=== PATIENT | female | born 1965 | race Caucasian/White ===

== ENCOUNTER 2022-04-04 17:32 | Emergency (ER) | payer SELFPAY ==
[2022-04-04] MEDS ORDERED: ETOMIDATE 20 MG/10 ML VIAL IV ONE (17:33)
[2022-04-04] MEDS ORDERED: SUCCINYLCHOLINE 20 MG/ML (10 ML) IV ONE (17:33)
[2022-04-04] MEDS ORDERED: RSI MEDICATION KIT IV ONE ×2 (17:43→17:58)
[2022-04-04] MEDS ORDERED: Nicardipine/NS 25 MG/250 ML KIT IV ONE (17:43)
--- NOTE | 2022-04-04 17:48 | RAD REPORT ---
EXAM DESCRIPTION: CT - Ct Stroke Brain Wo Cont - 04/04/2022 5:41 pm CLINICAL HISTORY: ams, weakness COMPARISON: No comparisons TECHNIQUE: All CT scans are performed using dose optimization technique as appropriate and may inclu de automated exposure control or mA/KV adjustment according to patient size. FINDINGS: Right basal ganglia intraparenchymal hemorrhage measuring 4.5 cm by 2.6 cm with intraventr icular spread. The temporal horns are mildly dilated suggesting early hydrocephalus. Blood is also se en within the third and fourth ventricles. No acute large vascular territory infarcts. No midline cori ft. The paranasal sinuses and mastoids are clear. The calvarium is intact. IMPRESSION: Right basal ganglia intraparenchymal hemorrhage with intraventricular spread. Findings c oncerning for early hydrocephalus. No midline shift. Discussed with Titi by Dr. Casillas at 1740 on 04/04/22
[2022-04-04 17:58] LABS: Hematocrit 50.1 % (36.0-45.0); Lymphocytes % 27.2 % (15.3-44.8); RBC Red Blood Cell Count 5.19 M/uL (3.86-4.86)
--- NOTE | 2022-04-04 18:01 | EDPHYS ---
Physician Documentation [facility] Name: Goldie Macedo Age: 57 yrs Sex: Female : 1965 Arrival Date: 04/04/2022 Time: 17:33 Bed DIS4 Private MD: ED Physician HPI: 04/04 18:01 This 57 yrs old Female presents to ER via EMS with unknown complaint. pm1 18:01 The patient presents with decreased mental status, decreased responsiveness. Onset: The pm1 symptoms/episode began/occurred just prior to arrival. Possible causes: unknown. Associated signs and symptoms: Pertinent positives: Slurred speech, generalized weakness, gaze to right side. Current symptoms: In the emergency department the patient's symptoms have worsened, Per EMS. Patient was talking on arrival by EMS is no longer talking now. Patient's baseline: Neuro: alert and fully oriented, Motor: no deficits, Ambulation: walks without assistance, Speech: normal, The patient has a previous history of Hypertension, diabetes, patient does not take any medications except for aspirin. The patient has not experienced similar symptoms in the past. The patient has not recently seen a physician, and does not have an established primary care provider. Historical: - Allergies: 18:10 No Known Allergies; jl7 - Home Meds: 18:10 Aspirin Oral [Active]; jl7 - PMHx: 18:10 Diabetes mellitus; Hypertensive disorder; jl7 - Immunization history:: Adult Immunizations unknown. - Social history:: Smoking status: unknown. ROS: 18:01 Constitutional: Negative for fever, chills, and weight loss, Cardiovascular: Negative pm1 for chest pain, palpitations, and edema, Respiratory: Negative for shortness of breath, cough, wheezing, and pleuritic chest pain, MS/Extremity: Negative for injury and deformity, Skin: Negative for injury, rash, and discoloration. 18:01 Neuro: Positive for altered mental status, weakness. 18:01 All other systems are negative. Exam: 18:01 Skin: Warm, dry with normal turgor. Normal color with no rashes, no lesions, and no pm1 evidence of cellulitis. MS/ Extremity: Pulses equal, no cyanosis 18:01 Constitutional: The patient appears non-toxic, well developed, well hydrated, well groomed, well nourished, Responsive only to pain 18:01 Head/face: Exam is negative for acute changes. 18:01 Eyes: Periorbital structures: appear normal, Pupils: no acute changes. 18:01 ENT: Mouth: no acute changes, Lips: normal, moist, Oral mucosa: normal, pink and intact, moist, Gums: normal with healthy appearance. 18:01 Neck: Exam negative for acute changes. 18:01 Cardiovascular: Exam negative for acute changes, Rate: normal, Rhythm: regular, Pulses: no pulse deficits are appreciated. 18:01 Respiratory: Exam negative for acute changes, respiratory distress, shortness of breath. 18:01 Neuro: Mentation: unable to follow commands, responsive to pain. Vital Signs: 17:36 Temp 98.1(TE); jl7 17:37 BP 204 / 87; Pulse 99; Resp 36; Pulse Ox 92% 4 lpm ; Weight 83.91 kg; Height 5 ft. 3 jl7 in. (160.02 cm); 17:46 BP 225 / 96; Pulse 95; Resp 19; Pulse Ox 100% on BVM; jl7 17:50 BP 221 / 108; jl7 17:50 BP 221 / 108; Pulse 110; jl7 18:02 BP 218 / 110; jl7 18:02 BP 218 / 110; Pulse 119; jl7 18:08 BP 170 / 76; Pulse 108; Resp 20; Pulse Ox 100% on ETT vent; jl7 18:12 BP 138 / 72; Pulse 100; vg1 18:15 BP 135 / 74; Pulse 96; vg1 18:18 BP 155 / 78; Pulse 98; vg1 18:21 BP 149 / 68; Pulse 96; vg1 18:24 BP 146 / 73; Pulse 94; vg1 18:27 BP 155 / 69; Pulse 94; vg1 18:30 BP 165 / 70; Pulse 95; vg1 18:33 BP 155 / 68; Pulse 96; vg1 17:37 Body Mass Index 32.77 (83.91 kg, 160.02 cm) jl7 NIH Stroke Scale Scores: 17:26 NIHSS Score: 29 vg1 Procedures: 18:11 Intubation: Ventilated with 100% NRB prior to procedure. Intubated orally using # 4 pm1 Hilda blade with 7.5 mm ETT. Successful on second attempt. Ventilated with Ambu bag. Tube secured at right side of mouth measured 24 cm at teeth. Placement verified by CO2 detector with (+) color change, Patient tolerated well. MDM: 17:35 Patient medically screened. pm1 17:59 Data reviewed: vital signs. pm1 18:10 Counseling: I had a detailed discussion with the patient and/or guardian regarding: the pm1 historical points, exam findings, and any diagnostic results supporting the discharge/admit diagnosis, radiology results, the need to transfer to another facility, for higher level of care, Discussed with the . 04/04 17:37 Order name: Basic Metabolic Panel; Complete Time: 18:35 pm04/04 17:37 Order name: CBC with Diff; Complete Time: 18:41 pm 04/04 17:37 Order name: Protime (+inr); Complete Time: 18:35 pm 04/04 17:37 Order name: Ptt, Activated; Complete Time: 18:35 [facility] 04/04 17:47 Order name: COVID-19 SARS RT PCR (Document "Date of Onset" if Symptomatic); Complete jl7 Time: 18:49 04/04 17:54 Order name: Glucose, Ancillary Testing; Complete Time: 18:01 [facility] 04/04 17:37 Order name: CT Stroke Brain w/o Contrast; Complete Time: 18:01 pm04/04 17:37 Order name: Stroke CXR 1 View; Complete Time: 18:49 04/04 18:29 Order name: ABO/RH typing [facility] 04/04 18:29 Order name: Platelets, Leukored Pheresis [facility] 04/04 17:37 Order name: EKG; Complete Time: 17:38 pm04/04 17:37 Order name: Accucheck; Complete Time: 17:52 04/04 17:37 Order name: Cardiac monitoring; Complete Time: 17:52 pm04/04 17:37 Order name: EKG - Nurse/Tech; Complete Time: 17:52 pm04/04 17:37 Order name: IV Saline Lock; Complete Time: 17:52 pm04/04 17:37 Order name: Labs collected and sent; Complete Time: 17:52 pm04/04 17:37 Order name: NPO; Complete Time: 17:52 pm04/04 17:37 Order name: O2 Per Protocol; Complete Time: 17:52 pm04/04 17:37 Order name: O2 Sat Monitoring; Complete Time: 17:52 pm04/04 18:20 Order name: Transfuse: Platelets; Complete Time: 19:04 pm04/04 18:22 Order name: Intubation Setup; Complete Time: 18:22 jl7 Administered Medications: 17:45 Drug: niCARdipine 5 mg/hr Route: IV; Rate: calculated rate; Site: right antecubital; 7 17:50 Follow up: BP 221 / 108; Rate change 7.5 mg/hr jl7 18:02 Follow up: BP 218 / 110; Rate change 10 mg/hr jl7 18:49 Follow up: IV Status: Infusion continued upon transfer 1 17:52 Drug: Etomidate 20 mg Route: IVP; Site: left antecubital; 7 17:52 Follow up: Response: No adverse reaction 7 17:53 Drug: Succinylcholine 100 mg Route: IVP; Site: left antecubital; 7 17:53 Follow up: Response: No adverse reaction [facility] 18:04 Drug: Propofol 5 mcg/kg/min {Note: Order in Digital Folio does not match facility policy for jl7 titration. See titration policy, Appendix E, page 15 of 18 for titration increment 2-10 mcg/kg/min to achieve RASS goal 0 to -2.} Route: IV; Rate: calculated rate; Site: right forearm; 18:10 Follow up: Response: RASS: Agitated (+2); Rate change 15 mcg/kg/min 7 18:15 Follow up: Response: RASS: Agitated (+2); Rate change 25 mcg/kg/min [facility] 18:25 Follow up: Response: RASS: Restless (+1); Rate change 35 mcg/kg/min jl7 18:30 Follow up: Response: RASS: Restless (+1); Rate change 40 mcg/kg/min jl7 18:45 Follow up: Response: RASS: Agitated (+2); Rate change 50 mcg/kg/min 7 19:00 Follow up: IV Status: Infusion continued upon transfer 7 04/05 07:23 CANCELLED (order set in system does not match facility policyy): Propofol 5 mcg/kg/min jl7 IV at calculated rate See Administration Instructions; Standard concentration 1000 mg / 100 mL; Recommended max rate 50 mcg/kg/min; Titrate 2 mcg/kg/min every 5 minutes to achieve goal (see titration policy); Goal parameter RASS score 0 to -2 Point of Care Testing: Blood Glucose: 04/04 17:35 Blood Glucose: 240 mg/dL; vg1 Ranges: Critical Glucose Levels:Adult <50 mg/dl or >400 mg/dl <40 mg/dl or >180 mg/dl Disposition: 18:50 Co-signature as Attending Physician, Elmo Portillo MD I agree with the assessment ma2 and plan of care. Septic by neurologist Dr. Obando. Disposition Summary: 04/04/22 18:01 Transfer Ordered Transfer Location: [facility] pm1 Reason: Higher level of care pm1 Condition: Serious pm1 Problem: new pm1 Symptoms: have improved pm1 Accepting Physician: Topher COLEMAN(04/05/22 08:12) jl7 Diagnosis - Nontraumatic subarachnoid hemorrhage, unspecified pm1 Forms: - Medication Reconciliation Form pm1 - SBAR form pm1 NIH Stroke Scale - NIH Stroke Score Date: 04/04/2022 Time: 17:26 Total Score = 29 1a. Level of Consciousness (LOC) - 2(Not Alert, obtunded) 1b. Level of Consciousness (LOC) (Month \\T\\ Age) - 2(Neither) 1c. LOC Commands (Open \\T\\ Closes Eyes/Instructional Consultant) - 1(One) 2. Best Gaze (Lateral Gaze Paresis) - 2(Forced deviation) 3. Visual Field Loss - 3(Bilateral hemianopia) 4. Facial Palsy - 0(Normal) 5a. Left Arm: Motor (10-second hold) - 4(No movement) 5b. Right Arm: Motor (10-second hold) - 0(No drift) 6a. Left Leg: Motor (5-second hold - always test supine) - 4(No movement) 6b. Right Leg: Motor (5-second hold - always test supine) - 1(Drift) 7. Limb Ataxia (finger/nose \\T\\ heel/guillen - test with eyes open) - 2(Present in two limbs) 8. Sensory Loss (pinprick arms/legs/face) - 2(Severe to total loss) 9. Best Language: Aphasia (description/naming/reading) - 2(Severe aphasia) 10. Dysarthria (speech clarity - read or repeat words) - 2(Severe) 11. Extinction and Inattention (visual/tactile/auditory/spatial/personal) - 2(Profound) Initials: vg1 Signatures: Dispatcher [employer] Sacha Bowman NP STAFF ASSISTANT pm1 Kaylee Dexter, RN RN jl7 Elmo Portillo MD MD ma2 Keyla Abraham RN RN vg1 Corrections: (The following items were deleted from the chart) 17:37 17:37 Stroke Swallow Screen ordered. pm1 pm1 19:20 18:01 Topher COLEMAN pm1 vg1 04/05 07:04/04 18:12 Propofol 5 mcg/kg/min IV at calculated rate See Administration jl7 Instructions; Standard concentration 1000 mg / 100 mL; Recommended max rate 50 mcg/kg/min; Titrate 2 mcg/kg/min every 5 minutes to achieve goal (see titration policy); Goal parameter RASS score 0 to -2 ordered. 04/05 07:04/04 18:20 Propofol 5 mcg/kg/min IV at calculated rate See Administration jl7 Instructions; Standard concentration 1000 mg / 100 mL; Recommended max rate 50 mcg/kg/min; Titrate 2 mcg/kg/min every 5 minutes to achieve goal (see titration policy); Goal parameter RASS score 0 to -2 given. 04/05 07: 07:22 Propofol 5 mcg/kg/min IV at calculated rate See Administration jl7 Instructions; Standard concentration 1000 mg / 100 mL; Recommended max rate 50 mcg/kg/min; Titrate 2 mcg/kg/min every 5 minutes to achieve goal (see titration policy); Goal parameter RASS score 0 to -2 ordered. 0804/04 19:20 Topher COLEMAN vg1 jl7
--- NOTE | 2022-04-04 18:01 | ER ---
Nurse's Notes [facility] Name: Glodie Macedo Age: 57 yrs Sex: Female : 1965 Arrival Date: 04/04/2022 Time: 17:33 Bed DIS4 Private MD: Diagnosis: Nontraumatic subarachnoid hemorrhage, unspecified Presentation: 04/04 17:26 Chief complaint: EMS states: Toned out for fall, pt A\T\Ox3 in route, leaning to left, jl7 slurred speech, with right sided gaze which spouse reports is baseline, last known normal 0 today. Pt with snoring respirations on arrival to ER, able to open eyes, code stroke called and pt transported to CT via EMS stretcher. 17:26 Method Of Arrival: EMS: [facility] 17:26 Coronavirus screen: At this time, the client does not indicate any symptoms associated jl7 with coronavirus-19. Ebola Screen: No symptoms or risks identified at this time. Initial Sepsis Screen: Does the patient meet any 2 criteria? No. Patient's initial sepsis screen is negative. Does the patient have a suspected source of infection? No. Patient's initial sepsis screen is negative. Risk Assessment: Do you want to hurt yourself or someone else? Patient reports no desire to harm self or others. Onset of symptoms was April 04, 2022 at 16:50. Care prior to arrival: IV initiated. 20 GA, in the right forearm. 17:26 Acuity: SHWETHA 1 jl7 17:26 An acute neurological deficit is present. The charge nurse has been notified. 1 17:26 Pre-hospital glucose is not applicable to this patient. vg1 Triage Assessment: 17:26 The onset of the patients symptoms was April 04, 2022 at 16:50. General: Appears jl7 distressed. Stroke Activation: Symptom onset < 3 hours Physician: Stroke Attending; Name: ; Notified At: ; Arrived At: Physician: Chief Stroke Resident; Name: ; Notified At: ; Arrived At: Physician: Stroke Resident; Name: ; Notified At: ; Arrived At: Physician: ED Attending; Name: Lindsey; Notified At: ; Arrived At: Physician: ED Resident; Name: ; Notified At: ; Arrived At: Historical: - Allergies: 18:10 No Known Allergies; jl7 - Home Meds: 18:10 Aspirin Oral [Active]; jl7 - PMHx: 18:10 Diabetes mellitus; Hypertensive disorder; jl7 - Immunization history:: Adult Immunizations unknown. - Social history:: Smoking status: unknown. Screenin:48 Abuse screen: Denies threats or abuse. Nutritional screening: No deficits noted. vg1 Tuberculosis screening: No symptoms or risk factors identified. Fall Risk Fall in past 12 months (25 points). No secondary diagnosis (0 pts). IV access (20 points). Ambulatory Aid- None/Bed Rest/Nurse Assist (0 pts). Gait- Weak (10 pts.). Mental Status- Overestimates/Forgets Limitations (15 pts.). Total English Fall Scale indicates High Risk Score (45 or more points). Fall prevention measures have been instituted. Side Rails Up X 2 Placed Close to Nursing Station Frequent Obs/Assessments Occuring. Assessment: 17:26 VAN Scoring: Arm Drift: Flaccid/no antigravity Visual Disturbance: No visual vg1 disturbance noted. Aphasia: Patient exhibits both expressive and receptive aphasia. Provider notified of +VAN scoring. unknown, The patient is not alert and/or unable to follow commands. Bedside swallow screen discontinued. Patient kept NPO until cleared by Speech Therapy or Physician. grunting The patient is exhibiting difficulty speaking. The patient does not exhibit difficulty understanding words. The patient is unable to swallow own secretions without drooling or the need for suction. failed failed The patient failed the bedside swallow screening. The patient will be kept NPO until cleared by Speech Therapy or Physician. Provider notified of bedside swallow screening results: Sacha Walls NP. T-PA (Activase) Screening: Contraindications: Intracranial hemorrhage and its risk factor and suspicion of subarachnoid bleed: Yes. 17:30 General: Appears ill, Behavior is drowsy. Pain: Unable to use pain scale. pt unable to vg1 speak. Neuro: Level of Consciousness is obtunded, Oriented to none. Cardiovascular: Patient's skin is warm and dry. Respiratory: Airway is patent 'snoring respirations'. Derm: Skin is pink, warm \T\ dry. red. 18:50 Reassessment: [facility] at bedside to transport pt. [facility] Vital Signs: 17:36 Temp 98.1(TE); jl7 17:37 BP 204 / 87; Pulse 99; Resp 36; Pulse Ox 92% 4 lpm ; Weight 83.91 kg; Height 5 ft. 3 jl7 in. (160.02 cm); 17:46 BP 225 / 96; Pulse 95; Resp 19; Pulse Ox 100% on BVM; jl7 17:50 BP 221 / 108; jl7 17:50 BP 221 / 108; Pulse 110; jl7 18:02 BP 218 / 110; jl7 18:02 BP 218 / 110; Pulse 119; jl7 18:08 BP 170 / 76; Pulse 108; Resp 20; Pulse Ox 100% on ETT vent; jl7 18:12 BP 138 / 72; Pulse 100; vg1 18:15 BP 135 / 74; Pulse 96; vg1 18:18 BP 155 / 78; Pulse 98; vg1 18:21 BP 149 / 68; Pulse 96; vg1 18:24 BP 146 / 73; Pulse 94; vg1 18:27 BP 155 / 69; Pulse 94; vg1 18:30 BP 165 / 70; Pulse 95; vg1 18:33 BP 155 / 68; Pulse 96; vg1 17:37 Body Mass Index 32.77 (83.91 kg, 160.02 cm) jl7 NIH Stroke Scale Scores: 17:26 NIHSS Score: 29 vg1 ED Course: 17:26 Arm band placed on right wrist. jl7 17:30 Patient has correct armband on for positive identification. Placed in gown. Bed in low vg1 position. Call light in reach. Side rails up X2. 17:30 Client placed on continuous cardiac and pulse oximetry monitoring. NIBP monitoring vg1 applied. 17:30 Inserted saline lock: 18 gauge in right antecubital area, using aseptic technique. vg1 17:33 Patient arrived in ED. eb 17:34 Sacha Walls NP is PHCP. pm1 17:34 Elmo Portillo MD is Attending Physician. pm1 17:38 initiated a transfer with Tami from the [facility]. eb 17:40 CT Stroke Brain w/o Contrast In Process Unspecified. EDMS 17:40 Initial lab(s) drawn, by me, sent to lab. Inserted saline lock: 20 gauge in left dh3 antecubital area, using aseptic technique. Blood collected. 17:[address] Obando the neuro porter sample case dairy feed sales consultant for [facility] with Dr. Portillo for patient transfer consultation. 17:43 administrative approval given by Tami Hernandez Rn/ patient has been accepted to [facility] 7 south 5 bed 17 / Dr. Obando has accepted the patient in transfer/ report to be called to [phone]. 17:50 [facility] flight called. eb 17:57 No provider procedures requiring assistance completed. Assisted provider with vg1 intubation using 7.5 mm ETT via oral route. ET tube secured at 24cm at the lips. Set up intubation tray. Intubated by Elmo Portillo MD Placement verified by CO2 detector w/ + color change, auscultating bilateral breath sounds, CXR. 17:58 NGT: inserted 16 Fr. other OG verified placement of air over stomach, verified return vg1 of gastric contents, Placement verified by X-ray, to intermittent suction. Returned gastric contents. Returned bile. 18:00 Flores cath inserted, using sterile technique, 16 Fr., by animal tech, balloon inflated, to vg1 gravity drainage, returned clear yellow urine. 18:10 Triage completed. jl7 18:34 Stroke CXR 1 View In Process Unspecified. EDMS 18:44 Keyla Abraham, SAMREEN is Primary Nurse. vg1 19:00 Patient transferred, IV remains in place. vg1 19:14 Primary Nurse role handed off by Keyla Abraham RN 2 04/05 07:08 PHCP role handed off by Sacha Walls NP jl7 07:08 Attending Physician role handed off by Elmo Portillo MD jl7 07:08 Kaylee Dexter, SAMREEN is Primary Nurse. jl7 Administered Medications: 04/04 17:45 Drug: niCARdipine 5 mg/hr Route: IV; Rate: calculated rate; Site: right antecubital; jl7 17:50 Follow up: BP 221 / 108; Rate change 7.5 mg/hr jl7 18:02 Follow up: BP 218 / 110; Rate change 10 mg/hr jl7 18:49 Follow up: IV Status: Infusion continued upon transfer vg1 17:52 Drug: Etomidate 20 mg Route: IVP; Site: left antecubital; jl7 17:52 Follow up: Response: No adverse reaction jl7 17:53 Drug: Succinylcholine 100 mg Route: IVP; Site: left antecubital; jl7 17:53 Follow up: Response: No adverse reaction jl7 18:04 Drug: Propofol 5 mcg/kg/min {Note: Order in [email or web address] does not match facility policy for [facility] titration. See titration policy, Appendix E, page 15 of 18 for titration increment 2-10 mcg/kg/min to achieve RASS goal 0 to -2.} Route: IV; Rate: calculated rate; Site: right forearm; 18:10 Follow up: Response: RASS: Agitated (+2); Rate change 15 mcg/kg/min jl7 18:15 Follow up: Response: RASS: Agitated (+2); Rate change 25 mcg/kg/min jl7 18:25 Follow up: Response: RASS: Restless (+1); Rate change 35 mcg/kg/min jl7 18:30 Follow up: Response: RASS: Restless (+1); Rate change 40 mcg/kg/min jl7 18:45 Follow up: Response: RASS: Agitated (+2); Rate change 50 mcg/kg/min 7 19:00 Follow up: IV Status: Infusion continued upon transfer [facility] 04/05 07:23 CANCELLED (order set in system does not match facility policyy): Propofol 5 mcg/kg/min [facility] IV at calculated rate See Administration Instructions; Standard concentration 1000 mg / 100 mL; Recommended max rate 50 mcg/kg/min; Titrate 2 mcg/kg/min every 5 minutes to achieve goal (see titration policy); Goal parameter RASS score 0 to -2 Medication: 04/04 19:00 VIS not applicable for this client. vg1 Point of Care Testing: Blood Glucose: 17:35 Blood Glucose: 240 mg/dL; vg1 Ranges: Output: 18:44 Urine: 800ml (Flores); Total: 800ml. vg1 Outcome: 18:01 ER care complete, transfer ordered by . pm1 19:00 Transferred by helicopter to [facility], Transfer form completed. vg1 19:00 critical 19:00 Discharge instructions given to family, Instructed on the need for transfer, Demonstrated understanding of instructions. 19:12 Patient left the ED. jl7 19:12 Patient left the ED. NIH Stroke Scale - NIH Stroke Score Date: 04/04/2022 Time: 17:26 Total Score = 29 1a. Level of Consciousness (LOC) - 2(Not Alert, obtunded) 1b. Level of Consciousness (LOC) (Month \T\ Age) - 2(Neither) 1c. LOC Commands (Open \T\ Closes Eyes/Backup Administrative Coordinator) - 1(One) 2. Best Gaze (Lateral Gaze Paresis) - 2(Forced deviation) 3. Visual Field Loss - 3(Bilateral hemianopia) 4. Facial Palsy - 0(Normal) 5a. Left Arm: Motor (10-second hold) - 4(No movement) 5b. Right Arm: Motor (10-second hold) - 0(No drift) 6a. Left Leg: Motor (5-second hold - always test supine) - 4(No movement) 6b. Right Leg: Motor (5-second hold - always test supine) - 1(Drift) 7. Limb Ataxia (finger/nose \T\ heel/guillen - test with eyes open) - 2(Present in two limbs) 8. Sensory Loss (pinprick arms/legs/face) - 2(Severe to total loss) 9. Best Language: Aphasia (description/naming/reading) - 2(Severe aphasia) 10. Dysarthria (speech clarity - read or repeat words) - 2(Severe) 11. Extinction and Inattention (visual/tactile/auditory/spatial/personal) - 2(Profound) Initials: vg1 Signatures: Dispatcher [employer] EDMS Sacha Walls, HOTEL SUPPLIES SALESPERSON HOTEL SUPPLIES SALESPERSON pm1 Kaylee Dexter RN RN jl7 Kayleigh Hackett 3 Kitty Garsia 2 Mariya Ball Victoria RN RN vg1 Corrections: (The following items were deleted from the chart) 18:11 17:43 administrative approval given by Tmai Hernandez Rn/ patient has been accepted eb to [facility] / Dr. Obando has accepted the patient in transfer/ report to be called to [phone] 18:43 18:29 Musculoskeletal: vg1 vg1 18:53 18:50 Response: RASS: Restless (+1); Rate change 2 mcg/kg/min vg1 vg1 18:56 18:10 Response: RASS: Restless (+1); Rate change 2 mcg/kg/min vg1 vg1 18:56 18:56 Response: RASS: Restless (+1); Rate change 17 mcg/kg/min [place] [id number] 18:57 18:15 Response: RASS: Restless (+1); Rate change 2 mcg/kg/min [facility] 18:57 18:20 Response: RASS: Restless (+1); Rate change 2 mcg/kg/min [facility] 18:58 18:25 Rate change 23 mcg/kg/min [place] [address] 19:12 18:29 General: Appears ill, Behavior is drowsy, [place] [address] 19:12 18:29 Pain: Unable to use pain scale. pt unable to speak [place] [address] 19:12 18:29 Neuro: Level of Consciousness is obtunded, Oriented to none [place] [address] 19:12 18:29 Cardiovascular: Patient's skin is warm and dry. [place] [address] 19:12 18:29 Respiratory: Airway is patent 'snoring respirations' [place] [address] 19:12 18:29 Derm: Skin is pink, warm \T\ dry. red, [place] [address] 19:12 18:29 Musculoskeletal: [place] [address] 04/05 07:12 04/04 07:36 Temp 98.1F Temporal; [place] [address] 04/05 07:22 04/04 18:04 Propofol 5 mcg/kg/min IV at calculated rate in right forearm [place] [address] 04/05 07:22 04/04 18:10 Response: RASS: Restless (+1); Rate change 17 mcg/kg/min [place] [id number] 04/05 07:22 04/04 18:15 Response: RASS: Restless (+1); Rate change 19 mcg/kg/min [place] [id number] 04/05 07:22 04/04 18:20 Response: RASS: Restless (+1); Rate change 21 mcg/kg/min [place] [id number] 04/05 07:22 04/04 18:25 Response: RASS: Restless (+1); Rate change 23 mcg/kg/min [place] [id number] 04/05 08:03 04/04 18:30 Response: RASS: Restless (+1); Rate change 30 mcg/kg/min [place] [address] 04/05 08:04 08:03 Response: RASS: Restless (+1); Rate change 40 mcg/kg/min [place] [address] 04/04 19:20 Patient left the ED. vg1 jl7 04/05 08: 08:12 Patient left the ED. jl7 jl7
[2022-04-04] MEDS ORDERED: propofoL 1,000 MG/100 ML VIAL IV ONE (18:08)
[2022-04-04 18:14] LABS: Protime INR 1.04
[2022-04-04 18:16] LABS: Potassium 3.8 mmol/L (3.5-5.1)
--- NOTE | 2022-04-04 18:43 | RAD REPORT ---
EXAM DESCRIPTION: RAD - Chest Single View - 04/04/2022 6:32 pm CLINICAL HISTORY: AMS COMPARISON: No comparisons FINDINGS: Lines: Endotracheal tube in satisfactory position above the leda at the level of the aor tic arch. Enteric tube below the diaphragm Lungs: No evidence of edema or pneumonia. Pleural: No significant pleural effusions or pneumothorax. Cardiac: The heart size is within normal limits. Bones: No acute fractures. Other: IMPRESSION: No acute cardiopulmonary disease. Endotracheal tube in satisfactory position
[2022-04-04 19:47] VITALS: O2SAT 100
[2022-04-04 20:27] VITALS: BP 155/68
[2022-04-05 09:23] VITALS: TEMP 98.1
--- NOTE | 2022-04-05 19:17 | EKG ---
Test Date: 2022-04-04 Test Time: 17:33:52 Bioinformatics Assistant: SEBLE MEASUREMENT RESULTS: Intervals: Rate: 86 FL: 150 QRSD: 84 QT: 410 QTc: 490 [place]: P: 78 FL: 150 QRS: 67 T: 77 INTERPRETIVE STATEMENTS: Normal sinus rhythm Septal infarct, age undetermined Abnormal ECG No previous ECG available for comparison Electronically Signed On 04-05-22 19:15:32 CDT by Sreekanth Milton
== END 2022-04-05 08:12 | disposition short-term general hospital (02) ==
LOC: ER 17:32
DX: I60.9 Nontraumatic subarachnoid hemorrhage, unspecified (principal); R47.81 Slurred speech; I10 Essential (primary) hypertension; E11.9 Type 2 diabetes mellitus without complications
CPT/HCPCS: 31500; 36415; 51702; 70450; 71045; 80048; 82947; 85025; 85610; 85730; 86850; 86900; 86901; 93005; 99291; J0330; J2704; P9073; U0003